=== PATIENT | male | born 1970 | race Caucasian/White ===

== ENCOUNTER 2018-04-29 12:49 | Emergency (ER) | payer OTHER ==
[~2018-04-29] VITALS: Ht 185.4 cm; Wt 81.6 kg
[2018-04-29 12:52] VITALS: BP 161/96
[2018-04-29] MEDS ORDERED: IBUPROFEN800 M1 PO (13:43)
[2018-04-29] MEDS ORDERED: KEFLEX500 M1 PO (13:43)
--- NOTE | 2018-04-29 13:44 | ED HAND/WRIST INJURY COMPLAINT ---
History of Present Illness General Chief Complaint: Laceration Procedure Stated Complaint: LFT HAND LAC Source: patient Exam Limitations: no limitations Vital Signs & Intake/Output Vital Signs & Intake/Output ED Intake and Output 04/30 0000 04/29 1200 Intake Total Output Total Balance Patient 180 lb Weight Allergies Coded Allergies: No Known Allergies (04/29/18) Reconcile Medications Cephalexin (Keflex) 500 MG CAPSULE 1 CAP PO TID CELLULITIS PPX Ibuprofen 800 MG TABLET 1 TAB PO TID PRN PAIN Triage Note: 47 YEAR MALE STATES THAT HE WAS USING HEDGE CLIPPER AND HE CUT THE TIP OF FINGER (L RING FINGER) NEEDS TETANUS Triage Nurses Notes Reviewed? yes Occurred: just prior to arrival Duration: hour(s): (1-2), constant, continues in ED, getting worse Timing: single episode today Injury Environment: home Severity: mild, moderate Severity Numbers: 6 Pain/Injury Location: Left: 4th finger. Context: laceration Method of Injury: laceration No Modifying Factors: none HPI: 39-year-old male presents for evaluation of a laceration to his left ring finger. Patient reports he was using a hedger when it slipped causing a laceration to the distal segment. There is some DAMAGE TO THE NAIL. He denies numbness or tingling. He is unsure of his last tetanus. No other injuries. Past History Travel History Traveled to [place] past 21 day No Medical History Any Pertinent Medical History? see below for history Neurological: NONE EENT: NONE Cardiovascular: NONE Respiratory: NONE Gastrointestinal: NONE Hepatic: NONE Renal: NONE Musculoskeletal: NONE Psychiatric: NONE Endocrine: NONE Blood Disorders: NONE Cancer(s): NONE MERCHANDISING CONSULTANT/Reproductive: NONE Tetanus Vaccine: 04/29/18 Surgical History Surgical History: non-contributory Psychosocial History What is your primary language Pashto Tobacco Use: Never used ETOH Use: denies use Illicit Drug Use: denies illicit drug use Family History Hx Contributory? No Review of Systems Review of Systems Constitutional: Reports: no symptoms. EENTM: Reports: no symptoms. Respiratory: Reports: no symptoms. Cardiovascular: Reports: no symptoms. GI: Reports: no symptoms. Genitourinary: Reports: no symptoms. Musculoskeletal: Reports: no symptoms. Skin: Reports: see HPI (LACERATION). Neurological/Psychological: Reports: no symptoms. Hematologic/Endocrine: Reports: no symptoms. Immunologic/Allergic: Reports: no symptoms. All Other Systems: Reviewed and Negative Physical Exam Physical Exam General Appearance: well developed/nourished, no apparent distress, alert, awake Head: atraumatic, normal appearance Eyes: Bilateral: normal appearance, EOMI. Ears, Nose, Throat: hearing grossly normal Neck: normal inspection, supple, full range of motion Cardiovascular/Respiratory: no respiratory distress Elbow Left: normal range of motion, normal inspection Elbow Right: normal range of motion, normal inspection Forearm Left: normal range of motion, normal inspection Forearm Right: normal range of motion, normal inspection Wrist Left: normal range of motion, normal inspection Wrist Right: normal range of motion, normal inspection Hand Left: normal range of motion, lacerations, 4th finger, THERE IS A 1CM LINEAR HORIZONTAL LACERATIO TO THE DISTAL SEGMENT OF THE LEFT 4TH DIIGT. THERE IS A NAILBED LACERATION. FULL ROM INTACT. NEUROVASDCUALR SUPPLY INTACT Hand Right: normal inspection, normal range of motion Neurologic/Tendon: normal sensation, normal motor functions, normal tendon functions, responds to pain, no evidence tendon injury Skin: intact, normal color, warm/dry Lymphatic: no anterior cervical precious Progress Differential Diagnosis: fracture, sprain, tenosynovitis, LACERATION ABRASION, FRACTURE NAIL BED LAC Plan of Care: Current Medications Sig/Carl Start time Last Medication Dose Stop Time Status Admin Ibuprofen 800 MG ONCE ONE 04/29 1345 AC (Motrin) 04/29 1346 Patient is here with a laceration to the distal segment of the left fourth digit. There is damage to the nail. There is cleaned with Betadine 1% lidocaine without epi was used for a digital block. 5-0 chromic simple interrupted suture was used to approximate the wound patient tolerated well. Sterile dressing and splint applied. Advised rest change dressing daily. Discussed wound care procedures in detail. Sutures will dissolve. Follow up with primary care doctor in a few days for recheck. Discussed return precautions patient agrees to plan. Tetanus was updated. PT WILL BE COVERED WITH KEFLEX FOR WOUND PPX. Departure Departure Disposition: HOME OR SELF CARE Condition: Stable Clinical Impression Primary Impression: Laceration of finger nail bed Qualifiers: Encounter type: initial encounter Qualified Code: S61.319A - Laceration without foreign body of unspecified finger with damage to nail, initial encounter Referrals: Patient Has No Primary Care Dr (PCP/Family) Additional Instructions: Keep the area clean and dry. Take antibiotics as directed for the full course. Change outer dressing once daily. Wear splint for 7-10 days. Ibuprofen as needed for pain. [place] for signs of infection like redness swelling discharge or pain. Make a follow-up with your doctor in a few days for recheck. The sutures will come out on THEIR OWN. Return to the emergency department with any concerns. Departure Forms: Customer Survey General Discharge Information Prescriptions: Current Visit Scripts Cephalexin (Keflex) 1 CAP PO TID #30 CAP Ibuprofen 1 TAB PO TID PRN PAIN #30 TAB
== END 2018-04-29 13:56 ==
LOC: ERH 12:49
DX: S61.315A Laceration without foreign body of left ring finger with damage to nail, initial encounter (principal); W29.3XXA Contact with powered garden and outdoor hand tools and machinery, initial encounter; Y93.H9 Activity, other involving exterior property and land maintenance, building and construction; Y92.009 Unspecified place in unspecified non-institutional (private) residence as the place of occurrence of the external cause
CPT/HCPCS: 90471; 90714; J2001